=== PATIENT | female | born 1975 | race African-American/Black ===

== ENCOUNTER 2023-08-14 08:54 | Emergency (ER) | payer OTHER, SELFPAY ==
--- NOTE | ~2023-08-14 | XR_ITS ---
EXAMINATION: XR chest 2V DATE: 08/14/2023 09:36 INDICATION: Transient alteration of awareness TECHNIQUE: AP and lateral views of the chest are obtained. COMPARISON: None available FINDINGS: The lungs are free of acute opacities. No pleural effusion or pneumothorax. The cardiomedia stinal silhouette is normal. There is mild thoracic spondylosis. IMPRESSION: 1. No acute cardiopulmonary abnormality. Reviewed, dictated and finalized at location B. CASTER
--- NOTE | ~2023-08-14 | CT_ITS ---
EXAMINATION: CT brain wo con INDICATION: Transient alteration of awareness COMPARISON: None TECHNIQUE: Standard unenhanced head CT. The dose-length product (DLP) was 681.00 mGy-cm. The mA was a djusted according to patient size. Iterative reconstruction technique was employed. FINDINGS: No intracranial hemorrhage, acute infarction, or abnormal mass lesion. The ventricles are n ormal. No abnormal mass effect or midline shift. The garg-white matter differentiation is normal. The basal cisterns are patent. The orbits are normal. The paranasal sinuses, mastoids and calvarium are normal. IMPRESSION: 1. No acute intracranial abnormality. Reviewed, dictated and finalized at location B. LUTION MANAGER
[2023-08-14 08:57] VITALS: BP 131/89; PULSE 81; RESP 13; TEMP 36.9; O2SAT 99
--- NOTE | 2023-08-14 09:00 | ECG_ITS ---
Measurements Intervals [place] Rate: 80 P: 37 NH: 137 QRS: 36 QRSD: 73 T: 29 QT: 377 QTc: 435 Interpretive Statements SINUS RHYTHM NORMAL ECG NO PREVIOUS ECG AVAILABLE FOR COMPARISON Electronically Signed On 08-14-2023 16:24:59 LEVELER HELPER by Enrrique Aquino M.D.
[2023-08-14 09:06] VITALS: BP 131/89; PULSE 82
[2023-08-14 09:07] VITALS: BP 151/111; PULSE 85
[2023-08-14] MEDS: SODIUM CHLORIDE 0.9% IV 1,000 ML 999 ML IV CONT (09:09)
--- NOTE | 2023-08-14 09:10 | ED.SYNCOPE ---
HPI - Syncope General Chief Complaint: Syncope Stated Complaint: syncopal Time Seen by Provider: 08/14/23 09:00 Source: patient Mode of arrival: EMS Limitations: no limitations History of Present Illness HPI narrative: This is a 47-year-old female that presents to the emergency department for a syncopal episode today. Reports she was at work hands started to feel lightheaded. She was also feeling a little short of breath. Reports everything started to go black. Her coworkers were able to help her get lowered to the ground and she passed out. She reports she had not eaten breakfast or drink much water yet today. She reports a mild headache currently. Denies current chest pain, shortness of breath, palpitations, or any lower extremity edema. Related Data Allergies Allergy/AdvReac Type Severity Reaction Status Date / Time No Known Allergies Allergy Verified 08/14/23 09:07 Review of Systems Review of Systems: CONSTITUTIONAL: Denies fever CARDIOVASCULAR: Denies chest pain, palpitations, or edema. RESPIRATORY: Reports dyspnea. GASTROINTESTINAL: Denies vomiting NEUROLOGIC: Reports headache. Denies numbness, or weakness. All systems reviewed & are unremarkable except as noted in HPI and below PMFSH Past Medical History Medical History (Updated 08/14/23 @ 11:25 by Virginia Lyn PA-C) History of diabetes mellitus Social History Social History (Updated 08/14/23 @ 09:13 by Virginia Lyn PA-C) Substance use: never Exam Narrative: GENERAL: Well-appearing, well-nourished, and in no acute distress. HEAD: Normocephalic, atraumatic. EYES: PERRLA and EOMI. ENT: Nares clear, no rhinorrhea or epistaxis. Mucous membranes moist. Oropharynx without tonsillar hypertrophy exudate or other lesions. Bilateral TMs pearly garg non-bulging NECK: Supple. No adenopathy or masses. CHEST: Clear to auscultation. No respiratory distress. No wheezes rales or rhonchi HEART: Regular rate and rhythm. No murmur heard. Normal peripheral pulses. EXTREMITIES: Normal range of motion. No edema. Strength equal in bilateral upper and lower extremities (5/5) SKIN: Warm, dry, no rash. NEURO: No focal deficits. Alert and oriented x3. Cranial nerves 2-12 grossly intact PSYCH: Normal mood and affect Course Course Emergency Course: Patient updated on her workup. Agrees with plan of care. Able to ambulate in the ED with a steady gait Vital Signs Vital signs: Vital Signs Temperature 98.4 F 08/14/23 08:57 Pulse Rate 81 08/14/23 08:57 Respiratory Rate 13 08/14/23 08:57 Blood Pressure 131/89 08/14/23 08:57 Pulse Oximetry 99 08/14/23 08:57 Temperature 98.4 F 08/14/23 08:57 Pulse Rate 77 08/14/23 11:15 Respiratory Rate 13 08/14/23 11:15 Blood Pressure 145/84 H 08/14/23 11:00 Pulse Oximetry 99 08/14/23 11:00 MDM - Syncope MDM Narrative Medical decision making narrative: Patient presents to the emergency department for a syncopal episode today. Patient is afebrile and nontoxic appearing. Her vitals are stable. CBC shows normocytic anemia with hemoglobin of 11.3. Metabolic panel without concerning findings. UA without evidence of infection. test is negative. EKG without concerning changes and baseline troponin is negative. D-dimer is not elevated. CT brain without acute findings. Chest x-ray without acute cardiopulmonary abnormality. Patient very low risk based on her Crockett syncope risk score. She was updated on her workup. Able to ambulate in the ED with a steady gait. Instructed to have close follow-up with primary provider. She was given warnings to return to the ER Differential Diagnosis Differential diagnosis: Likely syncope due to orthostatic hypotension, vasovagal syncope, pulmonary embolism and dehydration Lab Data Attestation: I reviewed the patient's lab results. 08/14/23 09:44 08/14/23 10:29 Labs: Lab Results 08/14/23 08/14/23
[2023-08-14] MEDS: ACETAMINOPHEN 500 MG TABLET 1000 MG PO (09:35)
[2023-08-14 09:51] LABS: Basophils Percent Auto 0.4 % (0.2-1.2); Eosinophils Absolute Auto 0.3 K/mm3 (0-0.3); Eosinophils Percent Auto 3.3 % (0-4.4); Hemoglobin 11.3 g/dL (12.0-15.0); Immature Granulocyte Absolute 0.03 K/mm3 (0.00-0.031); Immature Granulocyte Percent A 0.4 % (0-0.5); Lymphocytes Absolute Auto 1.68 K/mm3 (0.9-3.2); Lymphocytes Percent Auto 22.3 % (18.3-44.2); Mean Corpuscular HGB Conc 31.4 g/dl (32-36); Mean Corpuscular Hemoglobin 28.9 pg (26-34); Mean Corpuscular Volume 92.1 fl (80-100); Mean Platelet Volume 9.6 fl (7.4-10.4); Monocytes Absolute Auto 0.4 K/mm3 (0.1-0.6); Monocytes Percent Auto 5.7 % (2.6-8.5); Neutrophils Absolute Auto 5.1 K/mm3 (1.3-6.7); Neutrophils Percent Auto 67.9 % (45.5-73.1); Platelet Count Result 283 k/mm3 (150-375); Red Blood Count 3.91 M/mm3 (4.2-5.4); Red Cell Distribution Width 13.9 % (11.5-14.5); White Blood Count 7.6 K/mm3 (4.5-10.0)
[2023-08-14 10:03] LABS: Partial Thromboplastin Time 22.7 SECONDS (22.3-36.8); Prothrombin Time 14.1 Seconds (11.1-14.7)
[2023-08-14 10:07] LABS: D Dimer 0.48 ug/mL (<0.48)
[2023-08-14 10:13] LABS: Troponin I < 0.012 ng/mL (0.000-0.034)
[2023-08-14 10:51] LABS: Alanine Aminotransferase 15 U/L (6-35); Albumin Level 3.9 g/dL (3.5-5.1); Alkaline Phosphatase 56 U/L (38-126); Anion Gap 6 mmol/L (8-16); Aspartate Amino Transferase 25 U/L (14-36); Bilirubin,Total 0.4 mg/dL (0.2-1.3); Blood Urea Nitrogen 10 mg/dL (7-17); Calcium 8.7 mg/dL (8.4-10.2); Carbon Dioxide 23 mmol/L (22-30); Chloride 108 mmol/L (98-107); Estimated CRCL calculation 88 ml/min; Estimated Glomerular Filt Rate > 60; Glucose 95 mg/dL (65-110); Sodium 137 mmol/L (137-145)
[2023-08-14 10:54] LABS: Appearance Urine Clear (Clear); Bacteria Urine Rare /hpf; Bilirubin Urine Negative (Negative); Blood Urine 3+ (Negative); Color Urine Yellow (Yellow); Glucose Urine UA Negative (Negative); Ketones Urine Negative (Negative); Leukocyte Esterase Ur Negative LEU/UL (Negative); Nitrate Urine Negative (Negative); Non Pathogenic Casts 0-2; Protein Urine Negative (Negative); RBC Urine 51-100 /hpf (0-2); Specific Grav Ur 1.011 (1.001-1.035); Squamous Epithelial Cell Urine Few /hpf (Few); WBC Urine 0-5 /hpf; pH Urine 5.5 (5.0-9.0)
[2023-08-14 10:58] LABS: Add Urine Microscopic? YES
[2023-08-14 11:00] VITALS: BP 145/84; PULSE 74; RESP 12; O2SAT 99
[2023-08-14 11:15] VITALS: PULSE 77; RESP 13
== END 2023-08-14 11:32 | disposition home or self-care (01) ==
PROVIDERS: Emergency Medicine; Emergency Provider Physician Assistant
DX: R55 Syncope and collapse (principal); D64.9 Anemia, unspecified
CPT/HCPCS: 36415; 70450; 71046; 80053; 81001; 81025; 84484; 85025; 85380; 85610; 85730; 93005; 96360; 99284; A9270; J7030